=== PATIENT | male | born 1980 | race Caucasian/White ===

== ENCOUNTER 2018-09-02 20:31 | Emergency (ER) | payer MEDICAID ==
[~2018-09-02] VITALS: Ht 172.7 cm; Wt 83.5 kg
[2018-09-02 20:38] VITALS: BP 123/71
--- NOTE | 2018-09-02 20:38 | NUR ---
TO BED # 10 AMBULATORY
--- NOTE | 2018-09-02 20:54 | NUR ---
PATIENT PRESENTS TO ED WITH C/O GENERALIZED BODY RASH FROM [place] TO BUE SINCE 08/29/18 . 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 PATIENT DENIES ANY SOB, NO DIFFICULTY BREATHING, AIRWAY IS PATENT, SPEAKING IN FULL COMPLETE SENTENCES.PATIENT STATES HE TRIED BENADRYL AND HYDROCORTISONE, BUT NO RELIEF . DENIES N/V/D; SKIN IS PINK/WARM/DRY; AAOX4 WITH EVEN AND STEADY GAIT; LUNGS CLEAR BL; HR EVEN AND REGULAR; PT DENIES ANY FEVER, CP, SOB, OR COUGH AT THIS TIME; PATIENT STATES PAIN OF 6/10 AT THIS TIME; VSS; PATIENT POSITIONED FOR COMFORT; HOB ELEVATED; BEDRAILS UP X2; BED DOWN. ER MD MADE AWARE OF PT STATUS.
--- NOTE | 2018-09-02 21:01 | NUR ---
Patient being evaluated by Dr. De Paz at bedside.
[2018-09-02] MEDS ORDERED: DEXAMETHASONE 10 MG/ML VIAL IVP ONE (22:10)
[2018-09-02] MEDS ORDERED: diphenhydrAMINE 50 MG/ML VIAL IVP ONE (22:10)
[2018-09-02] MEDS ORDERED: NACL 0.9% 1,000 ML IV ONE (22:10)
[2018-09-02] MEDS ORDERED: EPINEPHrine 1:1000 - 1 MG/ML AMP SUBQ ONE (22:10)
--- NOTE | 2018-09-02 22:40 | NUR ---
VERIFIED ORDER WITH TREMAINE RAZO TO GIVEN EPI
[2018-09-03 00:20] VITALS: BP 112/60
--- NOTE | 2018-09-03 00:21 | NUR ---
Patient discharged with v/s stable. Written and verbal after care instructions given and explained. Patient alert, oriented and verbalized understanding of instructions. Ambulatory with steady gait. All questions addressed prior to discharge. ID band removed. Patient advised to follow up with PMD. Rx of PEPCID AND PREDNISONE given. Patient educated on indication of medication including possible reaction and side effects. Opportunity to ask questions provided and answered.Patients friend Bennie will be driving patient home.
--- NOTE | 2018-09-03 00:21 | NUR ---
IV removed, catheter intact and site benign. Applied folded 4x4 gauze and tape to stop bleeding.
== END 2018-09-03 00:21 | disposition home or self-care (01) ==
LOC: MED 20:31
DX: L50.0 Allergic urticaria (principal)
CPT/HCPCS: 96361; 96372; 96374; 96375; 99283; J0171; J1100; J1200; J7030

== ENCOUNTER 2018-09-10 22:09 | Emergency (ER) | payer MEDICAID ==
[~2018-09-10] VITALS: Ht 172.7 cm; Wt 84.8 kg
[2018-09-10 22:11] VITALS: BP 145/82
--- NOTE | 2018-09-10 22:18 | NUR ---
PT AMBULATED TO ER BED 3
--- NOTE | 2018-09-10 22:25 | NUR ---
38 YO M BIB SELF AND SON PRESENTS TO ED C/O 12/16 RIGHT LOWER LEG PAIN WITH REDNESS AND WARMTH TO AFFECTED AREA. PT DENIES BUG BITE. PT'S SON STATES HE WAS SEEN LAST WEEK FOR ALLERGIC REACTION. DENIES FEVER, NVD. -- SKIN IN TACT. SHINY, RED. -- PT AWAKE, ALERT, CALM, COOPERATIVE. ANSWERS QUESTIONS APPROPRIATELY. BEHAVIOR AGE APPROPRIATE. -- SKIN PINK, WARM, DRY. BREATHING EVEN, UNLABORED. PMH-- DENIES RX-- DENIES
--- NOTE | 2018-09-11 | NUR ---
US AT BEDSIDE.
--- NOTE | 2018-09-11 00:45 | NUR ---
PT SLEEPING. BREATHING EVEN, UNLABORED. VSS. NO CONCERNS/ISSUES AT THIS TIME.
[2018-09-11 01:05] VITALS: BP 121/70
--- NOTE | 2018-09-11 01:05 | NUR ---
Patient discharged with v/s stable. Written and verbal after care instructions given and explained. Patient alert, oriented and verbalized understanding of instructions. Ambulatory with steady gait. All questions addressed prior to discharge. ID band removed. Patient advised to follow up with PMD. Rx of Naprosyn, Keflex, and Debrox ear drops given. Patient educated on indication of medication including possible reaction and side effects. Opportunity to ask questions provided and answered.
== END 2018-09-11 01:05 | disposition home or self-care (01) ==
LOC: MED 22:09
DX: L23.9 Allergic contact dermatitis, unspecified cause (principal); L03.115 Cellulitis of right lower limb; H61.21 Impacted cerumen, right ear
CPT/HCPCS: 93971; 99284; Q0092